=== PATIENT | female | born 1930 | race Caucasian/White ===

== ENCOUNTER 2016-05-04 18:11 | Observation (INO) | payer MEDICARE, OTHER ==
[2016-05-04] MEDS ORDERED: IPRATROPIUM/ALBUTEROL SULFATE 3 ML AMPUL.NEB NEB ONE ×2 (19:00→19:03)
[2016-05-04 19:31] LABS: BASOPHILS % 0.5 (0.0-1.5); EOSINOPHILS % 4.1 % (0.0-6.8); MEAN CORPUSCULAR HEMOGLOBIN 30.4 pg (28.0-34.0); MEAN CORPUSCULAR VOLUME 91.1 fl (80.0-100.0); MONOCYTES % 6.1 % (0.0-11.0); NEUTROPHILS # 3.4 # k/uL (1.4-7.7)
[2016-05-04 19:48] LABS: eGFR (African) > 60; eGFR (Non-African) > 60
[2016-05-04] MEDS ORDERED: methylPREDNISolone SOD SUCC 125 MG/2 ML VIAL IVP ONE (20:15)
--- NOTE | 2016-05-04 20:29 | Diagnostic Imaging Report ---
[facility] [address] [facility].[address] [address] ~ ~ ~ ~ Report Submission Date: May 04, 2016 6:44:53 PM OPERATING THEATRE TECHNICIAN Patient ~ Study Name: ELVIRA BAILON ~ Date: May 04, 2016 6:34:11 PM OPERATING THEATRE TECHNICIAN ~ Modality Type: CR Gender: F ~ Description: CHEST : [birth year] ~ Institution: [facility] Physician: YVON DAVE ~ ~ ~ ~ Chest -two views CLINICAL HISTORY: ~ Shortness of breath for 1 day. ~Productive cough. ~ FINDINGS: ~ Examination of the chest in PA and lateral views with no prior film for comparison demonstrates the lungs to be hyperinflated with flattening of the hemidiaphragms and increase in the AP diameter chest consistent with emphysema. ~The cardiac silhouette is enlarged and the aorta is atherosclerotic. ~There is no coalescent infiltrate. ~Degenerative changes are seen in the thoracic vertebrae. IMPRESSION: ~ Emphysema. ~ Cardiomegaly and aortic atherosclerosis. ~ Electronically signed on May 04, 2016 6:44:53 PM OPERATING THEATRE TECHNICIAN by: Daren TABARES
[2016-05-04] MEDS ORDERED: guaiFENesin/CODEINE PHOS 30ML BOTTLE PO ONE (20:51)
--- NOTE | 2016-05-04 20:55 | ED Physician Documentation ---
Dyspnea - HISTORIAN Historian: patient - HPI Stated Complaint: cough for 2 weeks Chief Complaint: Dyspnea Onset: days ago (2 weeks ago) Duration: continues in ED Initiating Event: upper respiratory illness Severity: severe Exacerbated By: laying flat Associated Symptoms: chills, productive cough. denies: fever, chest pain, chest discomfort Further Comments: yes (85 year old female patient presents with complaints of cough for the past 2 weeks. Patient states she has not gotten better, is now SOB with exerction. Unable to sleep due to her cough.) - ROS CONST: recent illness EYES/ENT: none GI/: none NEURO/PSYCH: denies: headache MS/SKIN/LYMPH: none - PAST HX Lung Disease: COPD PE Risk Factors: hypertension Other History: other (GERD, depression, incontinence) Immunizations: pneumovax, UTD, other (did NOT have flu shot in 2015) Allergies/Adverse Reactions: Allergies Allergy/AdvReac Type Severity Reaction Status Date / Time Penicillins Allergy Mild Verified 05/04/16 19:29 Sulfa (Sulfonamide Allergy Mild Verified 05/04/16 19:29 Antibiotics) [Sulfa(Sulfonamide Antibiotics)] Home Medications: Ambulatory Orders Medication Instructions Recorded Citalopram Hydrobromide 20 mg PO D 05/04/16 [Citalopram HBr] Fluticasone/Salmeterol [Advair 1 puff INH D 05/04/16 250-50 Diskus] Omeprazole [Omeprazole] 20 mg PO D 05/04/16 Pramipexole Di-HCl [Mirapex] 0.25 mg PO D 05/04/16 amLODIPine BESYLATE [Norvasc] 5 mg PO D 05/04/16 - SOCIAL HX Smoking History: non-smoker - FAMILY HX Family History: denies: none - VITAL SIGNS Vital Signs: Vital Signs Temp Pulse Resp BP Pulse Ox 98.5 F 82 20 170/86 94 05/04/16 18:11 05/04/16 20:00 05/04/16 18:11 05/04/16 18:11 05/04/16 20:00 - REVIEWED ASSESSMENTS Nursing Assessment Reviewed: Yes Vitals Reviewed: Yes Progress - Progress Progress: 2029 Patient's sat drops to 88-89% when sleeping with O2 at 2L NC 2044 Patient up, ambulated without oxygen, Sat 87%, will keep observation status , continue O2, nebs and IV steroids, send Respiratory viral panel. - EKG/XRAY/CT EKG: rhythm (SR, sat 83, no acute changes. ) ED Results Lab/Radiology - Lab Results Lab Results: Lab Results 05/04/16 05/04/16 19:25 19:25 WBC 5.20 K/ul K/ul (4.00-12.00) RBC 4.56 M/ul M/ul (3.90-5.20) Hgb 13.9 g/dL g/dL (12.0-16.0) Hct 41.5 % % (34.5-46.5) MCV 91.1 fl fl (80.0-100.0) MCH 30.4 pg pg (28.0-34.0) MCHC 33.4 g/dL g/dL (30.0-36.0) RDW 12.6 % % (11.3-14.3) Plt Count 208 K/mm3 K/mm3 (130-400) Neut % (Auto) 66.3 % % (39.0-79.0) Lymph % (Auto) 21.3 % % (16.0-50.0) Potter % (Auto) 6.1 % % (0.0-11.0) Eos % (Auto) 4.1 % % (0.0-6.8) Baso % (Auto) 0.5 (0.0-1.5) Neut # 3.4 # k/uL # k/uL (1.4-7.7) Lymph # 1.1 # k/uL # k/uL (0.6-4.0) Potter # 0.3 # k/uL # k/uL (0.0-0.9) Eos # 0.2 # k/uL # k/uL (0.0-0.6) Baso # 0.0 # k/uL # k/uL (0.0-0.5) Reactive Lymphs % 1.7 % % (0.0-5.0) Reactive Lymphs # 0.1 # k/uL # k/uL (0.0-0.8) Sodium 138 mmol/L mmol/L (136-145) Potassium 3.9 mmol/L mmol/L (3.5-5.0) Chloride 103 mmol/L mmol/L (98-110) Carbon Dioxide 39 mmol/L H mmol/L (20-32) BUN 15 mg/dL mg/dL (10-26) Creatinine 0.8 mg/dL mg/dL (0.4-1.5) Estimated Creat Clear 93 Est GFR ( Amer) > 60 (60 - ) Est GFR (Non-Af Amer) > 60 (60 - ) Glucose 129 mg/dL H mg/dL (70-99) Calcium 9.9 mg/dL mg/dL (8.5-10.5) Total Bilirubin 0.4 mg/dL mg/dL (0.2-1.2) AST 17 U/L U/L (0-41) ALT 15 U/L U/L (0-45) Alkaline Phosphatase 65 U/L U/L (46-116) Total Protein 8.2 g/dL g/dL (6.0-8.5) Albumin 4.7 g/dL g/dL (3.0-5.5) - Radiology Radiology Impressions: Chest -two views CLINICAL HISTORY: Shortness of breath for 1 day. Productive cough. FINDINGS: Examination of the chest in PA and lateral views with no prior film for comparison demonstrates the lungs to be hyperinflated with flattening of the hemidiaphragms and increase in the AP diameter chest consistent with emphysema. The cardiac silhouette is enlarged and the aorta is atherosclerotic. There is no coalescent infiltrate. Degenerative changes are seen in the thoracic vertebrae. IMPRESSION: Emphysema. Cardiomegaly and aortic atherosclerosis. - Orders Orders: ED Orders Category Date Time Status Continuous EKG monitoring Q30M Care 05/04/16 18:14 Active Continuous Pulse Oximetry Q30M Care 05/04/16 18:[address] Saline Lock/IV NOW Care 05/04/16 18:14 Active CHEST 2 VIEW [CHEST P.A.&LAT 2 VIEWS] [RAD] Stat Exams 05/04/16 Completed CBC/PLATELET/DIFF Stat Lab 05/04/16 19:25 Completed CMP Stat Lab 05/04/16 19:25 Completed INFLUENZA A&B Stat Lab 05/04/16 20:00 Ordered UA W/MICRO IF INDICATED Stat Lab 05/04/16 18:14 Ordered Ipratropium/Albuterol Sulfate [Duoneb] Med 05/04/16 19:00 Discontinued 3 ml NEB .STK-MED ONE Ipratropium/Albuterol Sulfate [Duoneb] Med 05/04/16 19:03 Discontinued 3 ml NEB NOW ONE guaiFENesin/CODEINE PHOS 30ML [Robitussin AC] Med 05/04/16 20:51 Discontinued 10 ml PO NOW ONE methylPREDNISolone SOD SUCC [Solu-MEDROL] Med 05/04/16 20:15 Discontinued 62.5 mg IVP NOW ONE Oxygen Daily Oxygen 05/04/16 18:15 Ordered Dyspnea Physical Exam - EXAM General Appearance: mild distress EENT: eye inspection normal, ENT inspection normal, pharynx normal, no signs of dehydration, REGINA, no nystagmus, TM's nml Respiratory: breath sounds nml, no pain on inspiration, speaks full sentences, wheezes (expiratory ), other (RA sat 87-88%) CVS: reg. rate & rhythm, no murmur, no gallop, no friction rub, pulses full, pulses equal Abdomen: non-tender, no organomegaly, no distention, no ascites Skin: color nml, no rash, warm, nml palp., dry Extremities: non-tender, no evidence of injury, no edema, other (generalized weakness, uses walker at home.) Neuro/Psych: oriented x3, CN's nml as tested, motor nml, sensation nml, mood/ affect nml Discharge Clincal Impression: Bronchitis, Hypoxemia requiring supplemental oxygen, Cough Home Medications: Ambulatory Orders Citalopram Hydrobromide [Citalopram HBr] 20 mg PO D 05/04/16 Fluticasone/Salmeterol [Advair 250-50 Diskus] 1 puff INH D 05/04/16 Omeprazole [Omeprazole] 20 mg PO D 05/04/16 Pramipexole Di-HCl [Mirapex] 0.25 mg PO D 05/04/16 amLODIPine BESYLATE [Norvasc] 5 mg PO D 05/04/16 Condition: Stable Disposition: 01 HOME, SELF-CARE Decision to Admit: [id number] Decision Time: 21:08
[2016-05-04] MEDS ORDERED: guaiFENesin/CODEINE PHOS 30ML BOTTLE PO PRN (21:24)
[2016-05-04] MEDS: IPRATROPIUM/ALBUTEROL SULFATE 3 ML AMPUL.NEB NEB SCH (22:40)
[2016-05-04 23:00] VITALS: BMI 36.3
[2016-05-05] MEDS: IPRATROPIUM/ALBUTEROL SULFATE 3 ML AMPUL.NEB NEB SCH (03:18)
[2016-05-05] MEDS ORDERED: amLODIPine BESYLATE 5 MG TABLET ONE (04:32)
[2016-05-05] MEDS ORDERED: CITALOPRAM HYDROBROMIDE 20 MG TABLET ONE (04:33)
[2016-05-05] MEDS ORDERED: methylPREDNISolone SOD SUCC 125 MG/2 ML VIAL IVP SCH (09:00)
[2016-05-05] MEDS ORDERED: FLUTICASONE/SALMETEROL 250-50 INHALER IH SCH (09:00)
[2016-05-05] MEDS ORDERED: CITALOPRAM HYDROBROMIDE 20 MG TABLET PO SCH (09:00)
[2016-05-05] MEDS ORDERED: amLODIPine BESYLATE 5 MG TABLET PO SCH (09:00)
[2016-05-05] MEDS ORDERED: methylPREDNISolone SOD SUCC 125 MG/2 ML VIAL ONE (11:03)
[2016-05-05] MEDS ORDERED: IPRATROPIUM/ALBUTEROL SULFATE 3 ML AMPUL.NEB NEB ONE (11:04)
[2016-05-05 13:35] VITALS: BP 146/82
[2016-05-06 10:01] LABS: ADENOVIRUS DNA NEGATIVE (NEGATIVE); BORDETELLA PERTUSSIS DNA NEGATIVE (NEGATIVE); SOURCE: SWAB
--- NOTE | 2016-07-24 14:00 | Discharge Summary ---
Discharge Summary - Discharge Sumary History of Present Illness: influenza symptoms cough and sob Condition at Discharge: Stable Home Medications: Ambulatory Orders Medication Instructions Recorded Citalopram Hydrobromide 20 mg PO D 05/04/16 [Citalopram HBr] Fluticasone/Salmeterol [Advair 1 puff INH D 05/04/16 250-50 Diskus] Omeprazole [Omeprazole] 20 mg PO D 05/04/16 Pramipexole Di-HCl [Mirapex] 0.25 mg PO D 05/04/16 amLODIPine BESYLATE [Norvasc] 5 mg PO D 05/04/16 Consultations this Visit: None Procedures this Visit: None Allergies/Adverse Reactions: Allergies Allergy/AdvReac Type Severity Reaction Status Date / Time Penicillins Allergy Mild Verified 05/04/16 19:29 Sulfa (Sulfonamide Allergy Mild Verified 05/04/16 19:29 Antibiotics) [Sulfa(Sulfonamide Antibiotics)] Hospital Course: improved-will f/u w/pcp
== END 2016-05-05 16:47 | disposition home or self-care (01) ==
LOC: ED 18:11 → SOUTH 21:01
PROVIDERS: ADMIT Emergency Medicine; ATTEND Emergency Medicine
DX: R05 Cough (principal); J06.9 Acute upper respiratory infection, unspecified; R50.9 Fever, unspecified
CPT/HCPCS: 71020; 80053; 85025; 87400; 87486; 87581; 87633; 87798; 94640; G0378; J2930; 96374; 96376; 99283; 99284; S1016

== ENCOUNTER 2016-07-22 15:21 | Outpatient (CLI) | payer MEDICARE, OTHER ==
[2016-07-22] MEDS ORDERED: ALBUTEROL SULFATE 2.5 MG/3 ML AMPUL.NEB NEB ONE (15:42)
--- NOTE | 2016-07-22 16:46 | Diagnostic Imaging Report ---
[facility] [address] [address] Report Submission Date: Jul 22, 2016 4:44:20 PM CDT Patient Study Name: ELVIRA BAILON Date: Jul 22, 2016 4:00:28 PM CDT Modality Type: CR Gender: F Description: CHEST : [birth year] Institution: [facility] Physician: ROBERTO FERGUSON - OP Chest - two views Clinical history: Shortness of breath. Findings: Examination of the chest in PA and lateral views with comparison to examination of 05/04/2016 demonstrates lungs to be hyperinflated but clear. There is minimal apical pleural thickening bilaterally. Cardiac silhouette is prominent and the aorta is atherosclerotic. There is widening of the paratracheal soft tissues on the right consistent with ectatic vasculature. There is mild prominence of the pulmonary arteries possibly related to pulmonary arterial hypertension. This appearance is unchanged. Impression: 1. Emphysema. 2. Aortic atherosclerosis. 3. Prominence of pulmonary arteries suggesting pulmonary arterial hypertension. Electronically signed on Jul 22, 2016 4:44:20 PM CDT by: Daren TABARES
== END 2016-07-22 15:22 ==
LOC: RT 15:21
PROVIDERS: ATTEND Family Medicine
DX: R06.02 Shortness of breath (principal)
CPT/HCPCS: 71020; 94060

== ENCOUNTER 2016-08-01 14:40 | Outpatient (CLI) | payer MEDICARE, OTHER | END 2016-08-01 14:42 | LOC: PULMONARY 14:40 | PROVIDERS: ATTEND Internal Medicine Critical Care Medicine | DX: R06.02 Shortness of breath (principal) | CPT/HCPCS: 99214; G0463 ==

== ENCOUNTER 2016-11-11 14:05 | Outpatient (CLI) | payer OTHER ==
--- NOTE | 2016-11-11 16:02 | Diagnostic Imaging Report ---
[facility] [address] [facility] [place], [place]. [address] Report Submission Date: Nov 11, 2016 3:47:53 PM CDT Patient Study Name: ELVIRA BAILON Date: Nov 11, 2016 2:21:21 PM CDT Modality Type: CT\SR Gender: F Description: CT ABD & PELVIS W/O CO : [birth year] Institution: [facility] Physician: ROBERTO FERGUSON - OP Examination: CT Abdomen/pelvis History: Right flank discomfort Comparison exams: None available Technique: CT Abdomen/pelvis without contrast protocol. Findings: Renal cortical margins are symmetric. No cortical or calyceal calcification. 2.2 cm right cortical cyst. Ureters described a normal course through the abdomen and pelvis. No abnormal dilation. No central calcifications. Ureterovesicular junctions are within normal limits. Pelvic phleboliths. Bladder is decompressed. Right hip prosthesis with streak artifact limits visualization of the bladder lumen. Liver, spleen, adrenals, and pancreas are without gross irregularity. Hepatic and spleen granuloma. Gallbladder not visualized, correlate with surgical history. Bowel unopacified limiting evaluation. No mesenteric inflammatory changes or free fluid. No abnormal bowel dilation. Atherosclerotic disease involving the abdominal aorta. No aneurysmal dilation. Lower pelvic sutures from prior sigmoid surgery. Scattered large bowel and sigmoid diverticuli. No adjacent inflammation. Osseous structures demonstrate degenerative changes. Lung bases with scarring and atelectasis. Impression: No nephro or ureterolithiasis. Bladder decompressed along with streak artifact limits evaluation of the lumen. Consider dedicated imaging if clinically warranted. Large bowel /sigmoid diverticulosis. Prior surgery. No acute inflammation. Electronically signed on Nov 11, 2016 3:47:53 PM CDT by: Luciano Sen [facility]ITALHarmony
== END 2016-11-11 15:00 ==
LOC: RAD 14:05
PROVIDERS: ATTEND Family Medicine
DX: R31.29 Other microscopic hematuria (principal); R10.9 Unspecified abdominal pain
CPT/HCPCS: 74176

== ENCOUNTER 2018-01-24 15:19 | Emergency (ER) | payer OTHER ==
[2018-01-24 17:41] VITALS: BP 159/78
[2018-01-24 18:53] LABS: BASOPHILS % 0.3 (0.0-1.5); EOSINOPHILS % 8.9 % (0.0-6.8); MEAN CORPUSCULAR HEMOGLOBIN 30.1 pg (28.0-34.0); MONOCYTES % 5.8 % (0.0-11.0); NEUTROPHILS # 4.9 # k/uL (1.4-7.7)
[2018-01-24] MEDS: diphenhydrAMINE HCL 50 MG/ML VIAL IVP ONE (18:53)
[2018-01-24 19:11] LABS: eGFR (Non-African) > 60
--- NOTE | 2018-01-24 19:28 | ED Physician Documentation ---
Skin Rash - HISTORIAN Historian: patient - HPI Stated Complaint: Rash Chief Complaint: Skin Rash Additional Information: Patient presents with a 24 hour history of rash to entire body. She states she was started on Doxycyline for bilateral lower extremity cellulitis on Friday. The rash and cellulitis has progressed over the past 24 hours. She denies fever, chills, chest pain or shortness of breath. Onset: hours (24) Timing: worse Duration: worse Location: generalized Quality: itchy Where: home Context: Medication Exposure: antibiotic (doxycycline) Context: Food Exposure: none Further Comments: no - ROS CONST: denies: fever CVS/RESP: denies: chest pain, shortness of breath EYES/ENT: denies: eye itching GI/: denies: abdominal pain, vomiting, nausea MS/SKIN/LYMPH: none NEURO/PSYCH: denies: headache - PAST HX Past History: hypertension Allergies/Adverse Reactions: Allergies Allergy/AdvReac Type Severity Reaction Status Date / Time Penicillins Allergy Mild Verified 01/24/18 17:48 Sulfa (Sulfonamide Allergy Mild Verified 01/24/18 17:48 Antibiotics) [Sulfa(Sulfonamide Antibiotics)] Penicillins Allergy Mild Uncoded 01/24/18 17:48 Sulfa(Sulfonamide Allergy Mild Uncoded 01/24/18 17:48 Antibiotics) Home Medications: Ambulatory Orders Medication Instructions Recorded Citalopram Hydrobromide 20 mg PO D 05/04/16 [Citalopram HBr] Fluticasone/Salmeterol [Advair 1 puff INH D 05/04/16 250-50 Diskus] Omeprazole 20 mg PO D 05/04/16 Pramipexole Di-HCl [Mirapex] 0.25 mg PO D 05/04/16 amLODIPine BESYLATE [Norvasc] 10 mg PO D 05/04/16 Clindamycin HCl [Cleocin HCl] 300 mg PO QID 14 Days capsule 01/24/18 Doxycycline Monohydrate [Monodox] 100 mg PO BID 01/24/18 Triamterene/Hydrochlorothiazid 1 tab PO DAILY PRN 01/24/18 [Triamterene-Hctz 37.5-25 mg Cp] - SOCIAL HX Smoking History: non-smoker Alcohol Use: none Drug Use: none - FAMILY HX Family History: none - VITAL SIGNS Vital Signs: Vital Signs Temp Pulse Resp BP Pulse Ox 89 24 159/78 94 01/24/18 15:20 01/24/18 15:20 01/24/18 15:20 01/24/18 15:20 - REVIEWED ASSESSMENTS Nursing Assessment Reviewed: Yes Vitals Reviewed: Yes Progress - Progress Progress: 2105 Patient is resting comfortably. Itching rash is resolving after decadron and benedryl. Rocephin is infusion. Vancomycin is now infusing ED Results Lab/Radiology - Lab Results Lab Results: Lab Results 01/24/18 01/24/18 18:40 18:40 WBC 7.70 K/ul K/ul (4.00-12.00) RBC 4.36 M/ul M/ul (3.90-5.20) Hgb 13.1 g/dL g/dL (12.0-16.0) Hct 39.1 % % (34.5-46.5) MCV 90.0 fl fl (80.0-100.0) MCH 30.1 pg pg (28.0-34.0) MCHC 33.6 g/dL g/dL (30.0-36.0) RDW 12.5 % % (11.3-14.3) Plt Count 258 K/mm3 K/mm3 (130-400) Neut % (Auto) 64.0 % % (39.0-79.0) Lymph % (Auto) 21.0 % % (16.0-50.0) Brooke % (Auto) 5.8 % % (0.0-11.0) Eos % (Auto) 8.9 % H % (0.0-6.8) Baso % (Auto) 0.3 (0.0-1.5) Neut # (Auto) 4.9 # k/uL # k/uL (1.4-7.7) Lymph # (Auto) 1.6 # k/uL # k/uL (0.6-4.0) Brooke # (Auto) 0.5 # k/uL # k/uL (0.0-0.9) Eos # (Auto) 0.7 # k/uL H # k/uL (0.0-0.6) Baso # (Auto) 0.0 # k/uL # k/uL (0.0-0.5) Sodium 137 mmol/L mmol/L (136-145) Potassium 3.8 mmol/L mmol/L (3.5-5.1) Chloride 93 mmol/L L mmol/L (98-107) Carbon Dioxide 32 mmol/L H mmol/L (22-30) BUN 21 mg/dL H mg/dL (7-17) Creatinine 0.90 mg/dL mg/dL (0.52-1.04) Estimated Creat Clear 82 Est GFR ( Amer) > 60 (60 - ) Est GFR (Non-Af Amer) > 60 (60 - ) Glucose 224 mg/dL H mg/dL (74-106) Calcium 9.0 mg/dL mg/dL (8.4-10.2) Total Bilirubin 0.2 mg/dL mg/dL (0.2-1.3) AST 18 U/L U/L (15-46) ALT 21 U/L U/L (13-69) Alkaline Phosphatase 73 U/L U/L (38-126) Total Protein 7.4 g/dL g/dL (6.3-8.2) Albumin 3.8 g/dL g/dL (3.5-5.0) - Orders Orders: ED Orders Category Date Time Status Place IV Lock 1T Care 01/24/18 18:20 Active CBC/PLATELET/DIFF Routine Lab 01/24/18 18:40 Completed CMP Routine Lab 01/24/18 18:40 Completed 0.9 % Sodium Chloride [Sodium Chloride] 100 ml Med 01/24/18 19:33 Discontinued IV .STK-MED 0.9 % Sodium Chloride [Sodium Chloride] 250 ml Med 01/24/18 20:02 Discontinued IV .STK-MED Vancomycin HCl [Vancocin] 1 gm Med 01/24/18 19:25 Discontinued 0.9 % Sodium Chloride [Normal Saline] 500 ml IV NOW cefTRIAXone SODIUM [Rocephin] Med 01/24/18 19:33 Discontinued 1 gm .ROUTE .STK-MED ONE cefTRIAXone SODIUM [Rocephin] 1 gm Med 01/24/18 19:24 Discontinued 0.9 % Sodium Chloride [Sodium Chloride] 100 ml IV NOW diphenhydrAMINE HCL [Benadryl] Med 01/24/18 18:20 Discontinued 25 mg IVP NOW ONE Skin Rash Physical Exam - EXAM General Appearance: no acute distress, alert Skin: warm,dry, other Location: generalized Character: symmetric, maculopapular, erythematous, other (nonblanching) Symptoms: No: warmth, tenderness Extremities: edema (+2 edema bilaterally to knees. Cellulitis present on anterior lower legs bilaterally) EENT: eyes nml inspection Neck: no swelling. No: stiff neck Respiratory: no resp distress, chest non-tender, breath sounds normal, wheezes (occasional scattered wheezing) CVS: reg. rate & rhythm Abdomen: non-tender, nml bowel sounds. No: tenderness Neuro/Psych: oriented x3, CN's nml as tested, motor nml, sensation nml Discharge Clincal Impression: Bilateral lower leg cellulitis, Drug rash Prescriptions: Clindamycin HCl [Cleocin HCl] 300 mg PO QID 14 Days capsule Referrals: Nancy Patel MD [Primary Care Provider] - 2 Days Comments: Patient was instructed to follow up with PCP within 3 days. Return to ER if redness/swelling increasing in legs. STOP doxycycline Condition: Stable Disposition: 01 HOME, SELF-CARE Decision to Admit: NO Date of Decison to Admit: 01/24/18 Decision Time: 22:13
[2018-01-24] MEDS: cefTRIAXone SODIUM 1 GM in 0.9 % SODIUM CHLORIDE 100 ML IV ONE (19:30)
[2018-01-24] MEDS: cefTRIAXone SODIUM 1 GM VIAL ONE (19:39)
[2018-01-24] MEDS: 0.9 % SODIUM CHLORIDE 100 ML IV ONE (19:39)
[2018-01-24] MEDS: 0.9 % SODIUM CHLORIDE 0 ML IV ONE (20:12)
[2018-01-24] MEDS: VANCOMYCIN HCL 1 GM in 0.9 % SODIUM CHLORIDE 500 ML IV ONE (20:31)
== END 2018-01-24 22:34 | disposition home or self-care (01) ==
LOC: ED 15:19
DX: L03.119 Cellulitis of unspecified part of limb (principal); L27.0 Generalized skin eruption due to drugs and medicaments taken internally
CPT/HCPCS: 80053; 85025; J0696; J1200; J3370; J7060; 96365; 96367; 96375; S1016